=== PATIENT | male | born 1940 | race Caucasian/White ===

== ENCOUNTER → 2017-03-04 | Outpatient (CLI) | payer MEDICARE, OTHER | END | disposition home or self-care (01) | LOC: RAD 14:18 | DX: I50.9 Heart failure, unspecified (principal); I70.0 Atherosclerosis of aorta | CPT/HCPCS: 71046 ==

== ENCOUNTER 2017-05-21 15:30 | Inpatient (IN) | payer MEDICARE, OTHER ==
[2017-05-21 16:24] LABS: ABNORMAL IP MESSAGE 1; HEMATOCRIT 38.9 % (42.0-52.0); HEMOGLOBIN 13.3 g/dl (14.0-18.0); MEAN CORPUSCULAR HEMOGLOBIN 31.7 pg (29.0-33.0); MEAN CORPUSCULAR HGB CONC 34.2 g/dl (32.0-37.0); MEAN CORPUSCULAR VOLUME 92.6 fl (82.0-101.0); MEAN PLATELET VOLUME 12.2 fl (7.4-10.4); PLATELET COUNT 166 10^3/UL (140-415); POSITIVE DIFF @See below; RED CELL DISTRIBUTION WIDTH 12.9 % (11.5-14.5)
[2017-05-21 16:24] LABS: WHITE BLOOD COUNT 9.8 10^3/ul (4.8-10.8)
[2017-05-21 16:26] LABS: ADD MAN DIFF? YES
[2017-05-21 16:48] LABS: ALANINE AMINOTRANSFERASE 26 IU/L (13-69); ALBUMIN 4.6 g/dl (3.3-4.9); ALBUMIN/GLOBULIN RATIO 1.39; ALKALINE PHOSPHATASE 132 IU/L (42-121); ANION GAP 20 (8-16); ASPARTATE AMINO TRANSFERASE 24 IU/L (15-46); BILIRUBIN,INDIRECT 0.3 mg/dl (0-1.1); BILIRUBIN,TOTAL 0.3 mg/dl (0.2-1.3); BLOOD UREA NITROGEN 51 mg/dl (7-20); CALCIUM 9.5 mg/dl (8.4-10.2); CARBON DIOXIDE 28 mmol/L (21-31); CHLORIDE 97 mmol/L (97-110); CREATININE 5.94 mg/dl (0.61-1.24); GLUCOSE 194 mg/dl (70-220); POTASSIUM 4.2 mmol/L (3.5-5.1); SODIUM 141 mmol/L (135-144); TOTAL PROTEIN 7.9 g/dl (6.1-8.1)
[2017-05-21 16:52] LABS: ANISOCYTOSIS 1+ (0-0); EOSINOPHILS % (M) 4 % (0-7); LYMPHOCYTES % (M) 52 % (15-51); MICROCYTOSIS 1+ (0-0); MONOCYTE #M 0.4 10^3/ul (0.3-0.9); MONOCYTES % (M) 5 % (0-11); PLATELET ESTIMATE NORMAL; POIKILOCYTOSIS 1+ (0-0); POLYCHROMASIA 1+ (0-0); SEGMENTED NEUTROPHILS (M) % 39 % (39-77); SMUDGE%M 18 % (0-0)
[2017-05-21] MEDS ORDERED: ACETAMINOPHEN 325 MG TAB PO (18:00)
[2017-05-21] MEDS ORDERED: ONDANSETRON 4 MG INJ IV (18:00)
[2017-05-21] MEDS: DORZOLAMIDE/TIMOLOL 10 ML OPH BOTH EYES (21:30)
[2017-05-21] MEDS ORDERED: ZOLPIDEM 5 MG TAB PO (21:30)
[2017-05-21] MEDS: ACETAMINOPHEN 325 MG TAB PO (21:41)
[2017-05-21] MEDS: NITROGLYCERIN (SL) 0.4 MG TAB SL ×2 (22:58→23:04)
[2017-05-22 06:39] LABS: ADD MAN DIFF? NO
[2017-05-22 06:42] LABS: WHITE BLOOD COUNT 8.7 10^3/ul (4.8-10.8)
[2017-05-22 06:42] LABS: BASOPHILS % 0.3 % (0.0-2.0); EOSINOPHILS # 0.2 10^3/ul (0.0-0.5); EOSINOPHILS % 2.7 % (0.0-7.0); HEMATOCRIT 37.2 % (42.0-52.0); HEMOGLOBIN 12.5 g/dl (14.0-18.0); LYMPHOCYTES # 2.8 10^3/ul (0.8-2.9); LYMPHOCYTES % 32.4 % (15.0-51.0); MEAN CORPUSCULAR HEMOGLOBIN 31.6 pg (29.0-33.0); MEAN CORPUSCULAR HGB CONC 33.6 g/dl (32.0-37.0); MEAN CORPUSCULAR VOLUME 93.9 fl (82.0-101.0); MEAN PLATELET VOLUME 12.2 fl (7.4-10.4); MONOCYTE # 1.1 10^3/ul (0.3-0.9); MONOCYTES % 12.4 % (0.0-11.0); NEUTROPHIL # 4.5 10^3/ul (1.6-7.5); NEUTROPHILS % 51.9 % (39.0-77.0); PLATELET COUNT 162 10^3/UL (140-415); RED BLOOD COUNT 3.96 10^6/ul (4.70-6.10)
[2017-05-22 07:03] LABS: ALANINE AMINOTRANSFERASE 30 IU/L (13-69); ALBUMIN 3.9 g/dl (3.3-4.9); ALBUMIN/GLOBULIN RATIO 1.21; ALKALINE PHOSPHATASE 90 IU/L (42-121); ANION GAP 20 (8-16); ASPARTATE AMINO TRANSFERASE 25 IU/L (15-46); BILIRUBIN,INDIRECT 0.1 mg/dl (0-1.1); BILIRUBIN,TOTAL 0.1 mg/dl (0.2-1.3); BLOOD UREA NITROGEN 66 mg/dl (7-20); CALCIUM 8.7 mg/dl (8.4-10.2); CARBON DIOXIDE 27 mmol/L (21-31); CHLORIDE 101 mmol/L (97-110); CREATININE 7.93 mg/dl (0.61-1.24); GLUCOSE 80 mg/dl (70-220); MAGNESIUM 2.2 mg/dl (1.7-2.5); POTASSIUM 4.7 mmol/L (3.5-5.1); SODIUM 143 mmol/L (135-144); TOTAL PROTEIN 7.1 g/dl (6.1-8.1)
[2017-05-22 07:10] LABS: TROPONIN-I 0.056 ng/ml (0.00-0.12)
[2017-05-22] MEDS: SEVELAMER CARBONATE 0.8 GM PKT PO ×3 (08:23→17:52)
[2017-05-22] MEDS: DORZOLAMIDE/TIMOLOL 10 ML OPH BOTH EYES ×2 (08:24→20:45)
[2017-05-22] MEDS: ASPIRIN (EC) 81 MG TAB PO (08:25)
[2017-05-22] MEDS: DOXAZOSIN 4 MG TAB PO (08:25)
[2017-05-22] MEDS: METOPROLOL 25 MG TAB PO ×2 (08:26→08:38)
[2017-05-22] MEDS: POLYETHYLENE GLYCOL 17 GM PACKET PO (08:26)
[2017-05-22] MEDS: NIFEdipine (XL) 30 MG TAB PO (08:27)
[2017-05-22] MEDS: FINASTERIDE 5 MG TAB PO (08:27)
[2017-05-22] MEDS: CHOLECALCIFEROL 400 UNITS TAB PO (08:27)
[2017-05-22] MEDS ORDERED: NIFEdipine (XL) 60 MG TAB PO (09:00)
[2017-05-22] MEDS: LORAZEPAM 0.5 MG TAB PO (17:52)
[2017-05-22] MEDS: SENNA TAB PO (20:45)
[2017-05-22] MEDS: ATORVASTATIN 20 MG TAB PO (21:16)
[2017-05-23] MEDS: METOPROLOL 25 MG TAB PO ×2 (09:00→13:34)
[2017-05-23] MEDS: NIFEdipine (XL) 30 MG TAB PO ×2 (09:00→13:34)
[2017-05-23] MEDS: DOXAZOSIN 4 MG TAB PO ×2 (09:00→13:36)
[2017-05-23] MEDS: ASPIRIN (EC) 81 MG TAB PO ×2 (09:00→13:37)
[2017-05-23] MEDS: FINASTERIDE 5 MG TAB PO ×2 (09:00→13:35)
[2017-05-23] MEDS: POLYETHYLENE GLYCOL 17 GM PACKET PO (09:06)
[2017-05-23] MEDS: SEVELAMER CARBONATE 0.8 GM PKT PO ×3 (09:07→17:07)
[2017-05-23] MEDS: CHOLECALCIFEROL 400 UNITS TAB PO (09:07)
[2017-05-23] MEDS: DORZOLAMIDE/TIMOLOL 10 ML OPH BOTH EYES ×2 (09:08→20:42)
[2017-05-23 11:42] LABS: HEPATITIS B SURFACE ANTIGEN NEGATIVE (NEGATIVE)
[2017-05-23] MEDS: LORAZEPAM 0.5 MG TAB PO (16:40)
[2017-05-23] MEDS: SENNA TAB PO (20:43)
[2017-05-23] MEDS: ATORVASTATIN 20 MG TAB PO (20:43)
[2017-05-24] MEDS: SEVELAMER CARBONATE 0.8 GM PKT PO ×3 (08:13→17:35)
[2017-05-24] MEDS: CHOLECALCIFEROL 400 UNITS TAB PO (08:14)
[2017-05-24] MEDS: POLYETHYLENE GLYCOL 17 GM PACKET PO (08:17)
[2017-05-24] MEDS: TIMOLOL BOTH EYES (08:24)
[2017-05-24] MEDS: [UNRECOGNIZED DRUG - OTHER] BOTH EYES (08:24)
[2017-05-24] MEDS: DORZOLAMIDE BOTH EYES (08:24)
[2017-05-24] MEDS: SENNA TAB PO (20:22)
[2017-05-24] MEDS: ATORVASTATIN 20 MG TAB PO (20:23)
[2017-05-24] MEDS: ACETAMINOPHEN 325 MG TAB PO (20:34)
[2017-05-24] MEDS: DORZOLAMIDE/TIMOLOL 10 ML OPH BOTH EYES (20:35)
[2017-05-25] MEDS ORDERED: ACETAMINOPHEN 325 MG TAB PO (02:00)
[2017-05-25] MEDS: ASPIRIN (EC) 81 MG TAB PO (08:39)
[2017-05-25] MEDS: SEVELAMER CARBONATE 0.8 GM PKT PO ×3 (08:39→17:06)
[2017-05-25] MEDS: FINASTERIDE 5 MG TAB PO (08:39)
[2017-05-25] MEDS: CHOLECALCIFEROL 400 UNITS TAB PO (08:39)
[2017-05-25] MEDS: METOPROLOL 25 MG TAB PO (08:40)
[2017-05-25] MEDS: DOXAZOSIN 4 MG TAB PO (08:40)
[2017-05-25] MEDS: DORZOLAMIDE/TIMOLOL 10 ML OPH BOTH EYES ×2 (08:42→20:34)
[2017-05-25] MEDS: NIFEdipine (XL) 30 MG TAB PO (08:42)
[2017-05-25] MEDS: POLYETHYLENE GLYCOL 17 GM PACKET PO (08:43)
[2017-05-25 09:46] LABS: ADD MAN DIFF? NO
[2017-05-25 09:52] LABS: WHITE BLOOD COUNT 9.1 10^3/ul (4.8-10.8)
[2017-05-25 09:52] LABS: BASOPHILS % 0.2 % (0.0-2.0); EOSINOPHILS # 0.4 10^3/ul (0.0-0.5); EOSINOPHILS % 4.7 % (0.0-7.0); HEMATOCRIT 38.8 % (42.0-52.0); HEMOGLOBIN 12.8 g/dl (14.0-18.0); LYMPHOCYTES # 3.1 10^3/ul (0.8-2.9); LYMPHOCYTES % 34.5 % (15.0-51.0); MEAN CORPUSCULAR HEMOGLOBIN 31.3 pg (29.0-33.0); MEAN CORPUSCULAR VOLUME 94.9 fl (82.0-101.0); MEAN PLATELET VOLUME 12.1 fl (7.4-10.4); MONOCYTES % 11.3 % (0.0-11.0); NEUTROPHIL # 4.5 10^3/ul (1.6-7.5); PLATELET COUNT 181 10^3/UL (140-415); RED BLOOD COUNT 4.09 10^6/ul (4.70-6.10)
[2017-05-25 10:07] LABS: ANION GAP 24 (8-16); BLOOD UREA NITROGEN 100 mg/dl (7-20); CALCIUM 8.6 mg/dl (8.4-10.2); CARBON DIOXIDE 27 mmol/L (21-31); CHLORIDE 94 mmol/L (97-110); CREATININE 9.35 mg/dl (0.61-1.24); GLUCOSE 111 mg/dl (70-220); PHOSPHORUS 6.6 mg/dl (2.5-4.9); POTASSIUM 4.6 mmol/L (3.5-5.1); SODIUM 140 mmol/L (135-144)
[2017-05-25] MEDS: ACETAMINOPHEN 325 MG TAB PO (15:34)
[2017-05-25] MEDS: ATORVASTATIN 20 MG TAB PO (20:35)
[2017-05-25] MEDS: SENNA TAB PO (20:36)
[2017-05-26] MEDS: DOXAZOSIN 4 MG TAB PO (08:41)
[2017-05-26] MEDS: SEVELAMER CARBONATE 0.8 GM PKT PO ×3 (08:41→18:14)
[2017-05-26] MEDS: METOPROLOL 25 MG TAB PO (08:44)
[2017-05-26] MEDS: CHOLECALCIFEROL 400 UNITS TAB PO (08:45)
[2017-05-26] MEDS: NIFEdipine (XL) 30 MG TAB PO (08:45)
[2017-05-26] MEDS: ASPIRIN (EC) 81 MG TAB PO (08:45)
[2017-05-26] MEDS: FINASTERIDE 5 MG TAB PO (08:45)
[2017-05-26] MEDS: DORZOLAMIDE/TIMOLOL 10 ML OPH BOTH EYES ×2 (08:45→21:17)
[2017-05-26] MEDS: POLYETHYLENE GLYCOL 17 GM PACKET PO (08:46)
[2017-05-26] MEDS: ACETAMINOPHEN 325 MG TAB PO (18:14)
[2017-05-26] MEDS: SENNA TAB PO (21:00)
[2017-05-26] MEDS: ATORVASTATIN 20 MG TAB PO (21:14)
[2017-05-27] MEDS: NIFEdipine (XL) 30 MG TAB PO ×2 (09:00→16:58)
[2017-05-27] MEDS: METOPROLOL 25 MG TAB PO ×2 (09:00→16:58)
[2017-05-27] MEDS: DOXAZOSIN 4 MG TAB PO ×2 (09:00→16:57)
[2017-05-27] MEDS: POLYETHYLENE GLYCOL 17 GM PACKET PO (09:00)
[2017-05-27] MEDS: DORZOLAMIDE/TIMOLOL 10 ML OPH BOTH EYES ×2 (09:10→21:10)
[2017-05-27] MEDS: FINASTERIDE 5 MG TAB PO (09:10)
[2017-05-27] MEDS: SEVELAMER CARBONATE 0.8 GM PKT PO ×3 (09:10→18:02)
[2017-05-27] MEDS: ASPIRIN (EC) 81 MG TAB PO (09:10)
[2017-05-27] MEDS: CHOLECALCIFEROL 400 UNITS TAB PO (09:10)
[2017-05-27] MEDS: NITROGLYCERIN (SL) 0.4 MG TAB SL (15:30)
[2017-05-27 18:11] LABS: TROPONIN-I 0.013 ng/ml (0.00-0.12)
[2017-05-27] MEDS: SENNA TAB PO (21:10)
[2017-05-27] MEDS: ATORVASTATIN 20 MG TAB PO (21:10)
[2017-05-27] MEDS: ACETAMINOPHEN 325 MG TAB PO (21:17)
[2017-05-28] MEDS: SEVELAMER CARBONATE 0.8 GM PKT PO ×2 (08:57→12:16)
[2017-05-28] MEDS: DORZOLAMIDE/TIMOLOL 10 ML OPH BOTH EYES (08:57)
[2017-05-28] MEDS: NIFEdipine (XL) 30 MG TAB PO (08:58)
[2017-05-28] MEDS: FINASTERIDE 5 MG TAB PO (08:58)
[2017-05-28] MEDS: DOXAZOSIN 4 MG TAB PO (08:58)
[2017-05-28] MEDS: POLYETHYLENE GLYCOL 17 GM PACKET PO (08:58)
[2017-05-28] MEDS: CHOLECALCIFEROL 400 UNITS TAB PO (08:58)
[2017-05-28] MEDS: METOPROLOL 25 MG TAB PO (08:58)
[2017-05-28] MEDS: ASPIRIN (EC) 81 MG TAB PO (08:59)
[2017-05-28 09:50] LABS: ADD MAN DIFF? NO
[2017-05-28 09:52] LABS: BASOPHILS % 0.2 % (0.0-2.0); EOSINOPHILS # 0.2 10^3/ul (0.0-0.5); EOSINOPHILS % 2.4 % (0.0-7.0); HEMATOCRIT 36.9 % (42.0-52.0); HEMOGLOBIN 12.2 g/dl (14.0-18.0); LYMPHOCYTES % 36.3 % (15.0-51.0); MEAN CORPUSCULAR HEMOGLOBIN 30.7 pg (29.0-33.0); MEAN CORPUSCULAR HGB CONC 33.1 g/dl (32.0-37.0); MEAN CORPUSCULAR VOLUME 92.9 fl (82.0-101.0); MEAN PLATELET VOLUME 11.8 fl (7.4-10.4); MONOCYTE # 1.2 10^3/ul (0.3-0.9); MONOCYTES % 14.2 % (0.0-11.0); NEUTROPHIL # 3.9 10^3/ul (1.6-7.5); NEUTROPHILS % 46.7 % (39.0-77.0); PLATELET COUNT 186 10^3/UL (140-415); RED BLOOD COUNT 3.97 10^6/ul (4.70-6.10); RED CELL DISTRIBUTION WIDTH 12.7 % (11.5-14.5)
[2017-05-28 09:52] LABS: WHITE BLOOD COUNT 8.3 10^3/ul (4.8-10.8)
[2017-05-28 10:12] LABS: ANION GAP 19 (8-16); BLOOD UREA NITROGEN 66 mg/dl (7-20); CALCIUM 8.2 mg/dl (8.4-10.2); CARBON DIOXIDE 28 mmol/L (21-31); CHLORIDE 96 mmol/L (97-110); CREATININE 7.52 mg/dl (0.61-1.24); GLUCOSE 124 mg/dl (70-220); POTASSIUM 4.7 mmol/L (3.5-5.1); SODIUM 138 mmol/L (135-144)
== END 2017-05-28 15:58 | disposition home or self-care (01) | DRG 100 ==
LOC: MS4 18:31 → E/R 15:30 → MS4 17:39
PROVIDERS: Internal Medicine
PROC: 5A1D70Z Performance of Urinary Filtration, Intermittent, Less than 6 Hours Per Day (ICD-10-PCS; 2017-05-22)
PROC: 5A1D70Z Performance of Urinary Filtration, Intermittent, Less than 6 Hours Per Day (ICD-10-PCS; principal; 2017-05-27)
DX: R56.9 Unspecified convulsions (principal); N18.6 End stage renal disease; I12.0 Hypertensive chronic kidney disease with stage 5 chronic kidney disease or end stage renal disease; I69.354 Hemiplegia and hemiparesis following cerebral infarction affecting left non-dominant side; E11.22 Type 2 diabetes mellitus with diabetic chronic kidney disease; E11.65 Type 2 diabetes mellitus with hyperglycemia; R07.89 Other chest pain; N40.0 Benign prostatic hyperplasia without lower urinary tract symptoms; E78.5 Hyperlipidemia, unspecified; D64.9 Anemia, unspecified; Z79.4 Long term (current) use of insulin; Z99.2 Dependence on renal dialysis
CPT/HCPCS: 36415; 70450; 70551; 71045; 80048; 80053; 82962; 83735; 84100; 84484; 85025; 87340; 90935; 93005; 95819; 99285-25